=== PATIENT | female | born 1930 | race Caucasian/White ===

== ENCOUNTER 2017-05-09 10:53 | Outpatient (CLI) | payer MEDICARE, OTHER ==
--- NOTE | 2017-05-09 16:09 | Ultrasound Report ---
RENAL ARTERY DUPLEX: 05/09/2017 CLINICAL INDICATION: Elevated blood pressure. TECHNIQUE: Real-time sonographic vascular imaging was performed by the assistant grocery through the renal arteries utilizing both color-flow and Doppler flow analysis. Multiple malt liquors sales representative static images were saved for review. RT KIDNEY RENAL SIZE LT KIDNEY RENAL SIZE Size: 10.2 X 3.9 X 4.8 cm Size: 11.2 X 4.2 X 4.9 cm SEGMENTAL ARTERY SEGMENTAL ARTERY PSV RI PSV RI Upper Pole 99 0.95 Upper Pole 57 0.96 Mid Pole 68 0.98 Mid Pole 41 0.98 Lower Pole 67 0.98 Lower Pole 46 0.98 RIGHT RENAL ARTERY LEFT RENAL ARTERY PSV RENAL ARTERY/ AORTA RATIO (RA/AO) PSV RENAL ARTERY/ AORTA RATIO (RA/AO) Origin: not seen not seen Origin: 181 3.2 Proximal: 99 1.8 Proximal: 129 2.3 Mid: 136 2.4 Mid: 161 2.9 Distal: 88 1.6 Distal: 80 1.45 PROX AORTA PSV: 55 cm/sec RRV PATENT: yes LRV PATENT: yes CRITERIA FOR CLASSIFICATION OF RENAL ARTERY DISEASE BY DUPLEX SCANNING Source: Criteria for Classification of Renal Artery Disease by Duplex Scanning [facility] Duplex Scanning In Vascular Disorders, 4th ed. 2010. Print. RENAL ARTERY DIAMETER REDUCTION RENAL ARTERY PSV RAR Normal < 180 cm/sec < 3.5 < 60% >/= 180 cm/sec < 3.5 >/= 60% >/= 180 cm/sec >/= 3.5 Occlusion (100%) No signal No signal FINDINGS RIGHT: The origin of the right renal artery is not well visualized. Velocities and ratios in the proximal, mid, and distal portions are normal. Resistive indices are elevated. The right kidney measures 10.2 x 4.8 x 3.9 cm, and demonstrates an 1.3 cm cortical cyst. The right renal vein is patent. LEFT: The left renal artery is well visualized throughout its length. There is an elevated velocity and ratio at the origin, suggestive of a hemodynamically significant ostial stenosis. Resistive indices are elevated. The left kidney measures 11.2 x 4.9 x 4.2 cm, and demonstrates an 1.8 cm cyst. The left renal vein is patent. 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 NONVISUALIZATION OF THE RIGHT RENAL ARTERY ORIGIN, DUE TO OVERLYING BOWEL GAS. ELEVATED RESISTIVE INDICES BILATERALLY, COMPATIBLE WITH MEDICAL RENAL DISEASE. TD: 05/09/2017 15:47 MTDD
== END 2017-05-09 10:54 | disposition home or self-care (01) ==
LOC: DI 10:53
PROVIDERS: ATTEND Registered Nurse
DX: R03.0 Elevated blood-pressure reading, without diagnosis of hypertension (principal)
CPT/HCPCS: 93975

== ENCOUNTER 2017-09-04 11:10 | Outpatient (CLI) | payer MEDICARE, OTHER ==
--- NOTE | 2017-09-04 15:40 | Ultrasound Report ---
Procedure Date: 09/04/2017 Accession Number: [id number] / [id number] Procedure: US - Carotid Doppler Complete CPT Code: FULL RESULT: EXAM: BILATERAL CAROTID AND VERTEBRAL ARTERY DUPLEX DOPPLER ULTRASOUND: EXAM DATE: 09/04/2017 12:31 PM CLINICAL HISTORY: FAINT BRUIT R CAROTID. COMPARISON: None. TECHNIQUE: Grayscale imaging, color Doppler, and duplex spectral Doppler were used to evaluate the carotid and vertebral arteries bilaterally. Static images were obtained. FINDINGS: No significant plaque is identified in the right or left common or internal carotid arteries. Normal antegrade flow is present in bilateral vertebral arteries. VELOCITIES (cm/sec): Transcription to insert worksheet here ICA diameter stenosis: Right: Left: IMPRESSION: 1. No significant bilateral carotid artery plaquing. 2. In the right carotid artery there are no elevated carotid artery velocities to suggest hemodynamically significant stenosis. 3. In the left carotid artery there are no elevated carotid artery velocities to suggest hemodynamically significant stenosis. 4. Normal antegrade flow is present in bilateral vertebral arteries. General Recommendations: Stenosis =50% ICA - Follow-up ultrasound 6-12 months Stenosis Normal Study but High Risk Patient - Follow-up ultrasound 3-5 years Management recommendations and diagnostic criteria are based on current IAC endorsed standards in Carotid Artery Stenosis: Grayscale and Doppler Ultrasound Diagnosis. Validated velocity measurements with angiographic measurements and velocity criteria are extrapolated from diameter data as defined by the Society of Radiologists in Ultrasound Consensus Conference Radiology 2003; 229;340-346. RADIA ADDENDUM: 09/08/17 09:01 VELOCITIES: Right: CCA Prox: PSV 65.0 cm/sec, EDV 9.0 cm/sec. CCA Mid: PSV 71.0 cm/sec, EDV 9.0 cm/sec. CCA Dist: PSV 56.1 cm/sec, EDV 8.4 cm/sec. ICA Prox: PSV 47.7 cm/sec, EDV 9.6 cm/sec. ICA Mid: PSV 115.7 cm/sec, EDV 23.0 cm/sec. ICA Dist: PSV 81.8 cm/sec, EDV 13.7 cm/sec. ECA: PSV 88.9 cm/sec, EDV cm/sec. Vertebral Artery: PSV 46.0 cm/sec, EDV 9.5 cm/sec. ICA/CCA Ratio: 2.06, 2.74. Left: CCA Prox: PSV 59.1 cm/sec, EDV 6.6 cm/sec. CCA Mid: PSV 65.0 cm/sec, EDV 7.8 cm/sec. CCA Dist: PSV 53.3 cm/sec, EDV 7.3 cm/sec. ICA Prox: PSV 56.5 cm/sec, EDV 12.9 cm/sec. ICA Mid: PSV 98.6 cm/sec, EDV 14.6 cm/sec. ICA Dist: PSV 74.3 cm/sec, EDV 15.7 cm/sec. ECA: PSV 84.7 cm/sec, EDV cm/sec. Vertebral Artery: PSV 35.8 cm/sec, EDV 6.9 cm/sec. ICA/CCA Ratio: 1.85, 2.00.
== END 2017-09-04 11:11 | disposition home or self-care (01) ==
LOC: DI 11:10
PROVIDERS: ATTEND Registered Nurse
DX: R09.89 Other specified symptoms and signs involving the circulatory and respiratory systems (principal); R55 Syncope and collapse; R01.1 Cardiac murmur, unspecified
CPT/HCPCS: 93880

== ENCOUNTER 2018-11-30 12:51 | Outpatient (CLI) | payer MEDICARE, OTHER ==
[2018-11-30] MEDS ORDERED: REGADENOSON 0.4 MG/5 ML SYRINGE IVP ONE ×2 (15:35→15:40)
[2018-11-30] MEDS ORDERED: AMINOPHYLLINE 250 MG/10 ML VIAL ONE (15:36)
--- NOTE | 2018-11-30 16:21 | CARDIAC PROCEDURE NOTE ---
DATE OF SERVICE: 11/30/2018 Physician: Chelsi Cheung MD, [facility] INDICATION: New 1st degree AV block and PACs. CARDIAC RISK FACTORS 1. Advanced age. 2. Uncontrolled hypertension. 3. Postmenopausal status. PROCEDURE: After signing informed consent, the patient underwent a Lexiscan pharmaceutical stress test with nuclear myocardial perfusion imaging. RESTING HEART RATE: 85. PEAK HEART RATE: 88. RESTING BLOOD PRESSURE: 192/70. PEAK BLOOD PRESSURE: 210/60. BLOOD PRESSURE DURING RECOVERY: BP fluctuated between 190/60 and 218/70. Lexiscan was infused per protocol. The patient had brief shortness of breath, a headache "behind her eyes" and lightheadedness. Oxygen saturation was 94% on room air. RESTING EKG: Ectopic atrial rhythm, left atrial enlargement, right axis deviation, LVH voltage. EKG AT PEAK: No ST-segment or T-wave changes, more frequent PACs are seen, and occasional PVCs. SUMMARY 1. Abnormal resting EKG. 2. No ST-segment or T-wave changes seen during pharmaceutical stress. 3. Blood pressure poorly controlled during this entire test. I called and reported this by phone to her provider. 4. Wide pule pressure suggests significant aortic regurgitation is present. Echocardiogram recommended. 5. Nuclear images, corresponding to this stress test, are reported separately. 6. Cardiac risk status: Moderate-High. TD: 11/30/2018 16:01 [email or web address]
--- NOTE | 2018-12-01 09:23 | Nuclear Medicine Report ---
Reason: PREMATURE ATRIAL CONTRACTION Procedure Date: 11/30/2018 Accession Number: [id number] / [id number] Procedure: NM - Myocardial Perfusion STR/RST CPT Code: FULL RESULT: EXAM: SINGLE-ISOTOPE PHARMACOLOGICAL STRESS TEST WITH REGADENOSON. SINGLE-ISOTOPE AND ONE-DAY REST/STRESS MYOCARDIAL PERFUSION SCANS WITH TOMOGRAPHIC IMAGING, QUANTITATIVE ANALYSIS, WALL MOTION ANALYSIS AND CALCULATION OF EJECTION FRACTION. EXAM DATE: 11/30/2018 01:59 PM. CLINICAL HISTORY: premature atrial contraction. COMPARISON: None available. TECHNIQUE: After the intravenous administration of 9 mCi of Tc-99m sestamibi, a rest myocardial perfusion scan was done with tomography. Motion correction was applied when appropriate. After an appropriate delay, pharmacological stress was performed with the infusion of 0.4 mg regadenoson per protocol. According to protocol, 42.1 mCi of Tc-99m sestamibi was injected for stress myocardial perfusion scan. Motion correction was applied when appropriate. Gated tomographic images were obtained for wall motion analysis and computation of left ventricular ejection fraction. FINDINGS: Images show a large, severe defect involving the apex and mid to distal anterior wall. The defect appears mostly fixed, but there is a smaller reversible component in the mid anterior wall closer to the base. Computer analysis. Summed stress score 25 Summed rest score 16 Summed difference score 8 Wall motion analysis demonstrates no significant focal abnormal wall motion. The left ventricular end-diastolic volume is 75 cc. The left ventricular end-systolic volume is 22 cc. The left ventricular ejection fraction is calculated to be 71%. IMPRESSION: 1. There is a large, severe, mostly fixed perfusion defect involving the apex and mid to distal anterior wall. There is a smaller reversible component in the mid anterior wall closer to the base. 2. Left ventricular ejection fraction of 71%. 3. No focal wall motion abnormality. 4. Normal left ventricular cavity size, no change with stress. 5. Based on computer analysis, severely abnormal study with moderate ischemia. Please correlate findings with stress ECG tracings and procedure notes. RADIA
== END 2018-11-30 12:52 | disposition home or self-care (01) ==
LOC: DI 12:51
PROVIDERS: ATTEND Nurse Practitioner Family
DX: I49.1 Atrial premature depolarization (principal); I44.0 Atrioventricular block, first degree; I25.10 Atherosclerotic heart disease of native coronary artery without angina pectoris
CPT/HCPCS: 78452; 93017; A9500; J2785

== ENCOUNTER 2019-01-22 09:04 | Outpatient (CLI) | payer MEDICARE, OTHER | END 2019-01-22 09:05 | disposition home or self-care (01) | LOC: DI 09:04 | PROVIDERS: ATTEND Internal Medicine Cardiovascular Disease | DX: I11.9 Hypertensive heart disease without heart failure (principal); I27.20 Pulmonary hypertension, unspecified; I35.1 Nonrheumatic aortic (valve) insufficiency | CPT/HCPCS: 93306 ==

== ENCOUNTER 2021-01-11 12:37 | Outpatient (CLI) | payer MEDICARE, OTHER ==
--- NOTE | 2021-01-11 17:18 | MRI Report ---
PROCEDURE: Brain W/O INDICATIONS: MILD COGNITIVE DISORDER TECHNIQUE: Noncontrast axial T1 spin echo, axial T2 fast spin echo, sagittal and axial FLAIR, coronal T2 fast sp in echo, axial gradient echo, axial diffusion and ADC through the brain. COMPARISON: None. FINDINGS: Image quality: Excellent. CSF Spaces: Basal cisterns are patent. No extra-axial fluid collections. Ventricles are normal in size and shape. Brain: No intracranial masses or hemorrhage. Edwards/white matter interface is normal. There is modera te, diffuse cerebral volume was. There are mild periventricular and subcortical white matter chronic microvascular ischemic changes. Brainstem appears normal. Diffusion-weighted images demonstrate no acute ischemic insult. No chronic ischemic insults. Normal intravascular flow voids are present. Skull and face: Calvarium has normal marrow signal. Orbits appear normal. Sinuses: Sinuses and mastoids are clear. IMPRESSION: 1. No acute intracranial disease process. 2. No areas of acute or chronic infarction. 3. No abnormal intracranial mass or mass effect. 4. Moderate, diffuse cerebral volume loss. 5. Mild periventricular and subcortical white matter chronic microvascular ischemic change. Reviewed by: Carli Anguiano MD, PhD on 01/11/2021 4:17 PM SANDIE Approved by: Carli Anguiano MD, PhD on 01/11/2021 4:17 PM AKCHELA Station ID: [id number]
== END 2021-01-11 12:38 | disposition home or self-care (01) ==
LOC: DI 12:37
PROVIDERS: ATTEND Registered Nurse
DX: R41.82 Altered mental status, unspecified (principal); G31.89 Other specified degenerative diseases of nervous system; I67.82 Cerebral ischemia

== ENCOUNTER 2022-07-23 07:00 | Outpatient (CLI) | payer MEDICARE, OTHER ==
--- NOTE | 2022-07-24 13:00 | XRAY Report ---
PROCEDURE: Foot 3 View LT INDICATIONS: PAIN IN LEFT FOOT TECHNIQUE: 3 views of the foot were acquired. COMPARISON: X-ray ankle 07/23/2022 FINDINGS: Bones: No fractures or dislocations. No suspicious bony lesions. Scattered IP degenerative narrow ing. Soft tissues: No suspicious soft tissue calcifications or masses. IMPRESSION: No visualized acute fracture or dislocation. However, occult injury cannot be excluded. Recommend luisa rt interval imaging follow-up in 7-10 days as clinically indicated for additional evaluation. Reviewed by: Trudi Pierce MD on 07/24/2022 12:59 PM PDT Approved by: Trudi Pierce MD on 07/24/2022 12:59 PM PDT Station ID: [id number]
--- NOTE | 2022-07-24 13:39 | XRAY Report ---
PROCEDURE: Ankle 3 View LT INDICATIONS: PAIN IN LEFT ANKLE TECHNIQUE: 3 views of the ankle were acquired. COMPARISON: X-ray foot 07/23/2022 FINDINGS: Bones: No fractures or dislocations. Ankle mortise is normally aligned. No suspicious bony lesions . Soft tissues: No tibiotalar joint effusion. Achilles tendon appears normal. IMPRESSION: No visualized acute fracture or dislocation. However, occult injury cannot be excluded. Recommend luisa rt interval imaging follow-up in 7-10 days as clinically indicated for additional evaluation. Reviewed by: Trudi Pierce MD on 07/24/2022 1:38 PM PDT Approved by: Trudi Pierce MD on 07/24/2022 1:38 PM PDT Station ID: [id number]
== END 2022-07-23 23:59 | disposition home or self-care (01) ==
LOC: DI.S 07:00
PROVIDERS: ATTEND Registered Nurse
DX: M19.072 Primary osteoarthritis, left ankle and foot (principal)